=== PATIENT | female | born 1970 | race Caucasian/White ===

== ENCOUNTER 2018-04-17 21:41 | Emergency (ER) | payer OTHER, SELFPAY ==
[2018-04-17 21:49] VITALS: BP 138/81; PULSE 75; RESP 15; TEMP 36.4; O2SAT 100
[2018-04-17] MEDS: TET,DIPH,PERTUSS(ACELL),VAC/PF 0.5 ML SYRINGE IM (22:13)
--- NOTE | 2018-04-17 22:13 | ED.EYEPROB ---
HPI - Eye Problem General Chief complaint: Eye Problems Stated complaint: STATES EXPLODING EYEBALL Time Seen by Provider: 04/17/18 22:03 Source: patient and family Mode of arrival: ambulatory Limitations: no limitations History of Present Illness HPI Narrative: This is a 48-year-old lady who states she was out in her yd gathering sticks when 1 went underneath the edge of her glasses had into her left eye. Patient states that it felt like it sort of went in on the edge of the inner eye and sort of around the eye. She states that she had pain but it seemed to improve. She had kind of forgot about it or was not having any major issues when she went to rub a stye that is chronically been on the left upper eyelid and she felt a gush of fluid Um and then her sclera became very swollen and she had swelling of the upper and lower lids. She states that it has been red and irritated. She states she is legally blind, she typically has great difficulty seeing without her glasses. She has a slight decrease on the left side today but states she can still see on that side. She does have irritation with movement of the eye. She denies any other trauma or injuries. She states that the swelling and other changes did happened immediately after the injury a couple hours later she was getting ready for bed and rubbing the area of stye. Patient states that her tetanus is about 5 years old. She sees an budget record clerk with [facility]. Dr. milligan. She has an appointment on Sunday with them. She has not had any prior eye surgeries. She did have an orbital fracture in January on that side. Related Data Home Medications Medication Instructions Recorded Confirmed MULTIVITAMIN (Multiple Vitamins 1 tab PO QDAY #0 01/11/11 Daily) VITAMIN D (Vitamin D3) 1,000 unit PO QDAY #0 09/14/11 Previous Rx's Medication Instructions Recorded topiramate [Topamax] 50 mg PO BID #60 tab 04/21/16 phentermine 15 mg PO SEE INSTRUCTIONS #63 cap 05/29/16 silver sulfadiazine [Silvadene] 1 matteo TOPICAL BID #60 gm 06/06/16 fluoxetine 40 mg PO QDAY #30 cap 11/13/16 Allergies Allergy/AdvReac Type Severity Reaction Status Date / Time octinoxate [OCTINOXATE] Allergy Unknown rash Verified 04/17/18 21:49 oxybenzone [OXYBENZONE] Allergy Unknown rash Verified 04/17/18 21:49 prednisone [PREDNISONE] AdvReac Severe psychosis Verified 04/17/18 21:49 RABBITS Allergy Mild ITCHY, Uncoded 09/19/17 11:46 NASAL RHINITIS TANUMU OIL Allergy Mild RASH Uncoded 09/19/17 11:46 Ethylhexyl P-Methoxycinnamate Allergy Unknown rash Uncoded 09/19/17 11:46 GENERIC: Tape, - Tape, Allergy Unknown REDNESS/CANDIDA Uncoded 09/19/17 11:46 Adhesive H Octyl Methoxycinnamate Allergy Unknown rash Uncoded 09/19/17 11:46 Review of Systems Review of Systems All systems reviewed & are unremarkable except as noted in HPI and below Eyes Reports system reviewed and no additional complaints, except as docu, Reports blurry vision, Reports change in vision, Denies diplopia, Reports eye discharge (Watery got-after rubbing I), Reports dry eyes, Reports irritation, Denies loss of peripheral vision, Denies loss of vision, Reports eye pain, Reports requires corrective lenses (Wearing glasses today, does sometimes wear contact), Denies photophobia and Reports other (Swelling, trauma to the eye) ENT Ears, Nose, Mouth, and Throat: Reports as per HPI Integumentary/Breasts Denies new lesions Neurologic Denies loss of vision PFSH Medical History Wears glasses (Acute) Social History Smoking Status: Never smoker Exam Initial Vital Signs Initial Vital Signs: Vital Signs Temperature 97.6 F 04/17/18 21:49 Pulse Rate 75 04/17/18 21:49 Respiratory Rate 15 04/17/18 21:49 Blood Pressure 138/81 04/17/18 21:49 Pulse Oximetry 100 04/17/18 21:49 GEN: well nourished, well appearing female, alert and oriented x 3, patient appears to be in mild distress. HEENT: Atraumatic, pupils are equal round reactive to light, extraocular movements are intact, no ptosis or protrusion noted, nares are clear, TMs are clear with no fluid, there is no conjunctival pallor. Throat is clear without any exudates, erythema, tonsillar enlargement or uvular deviation Visual acuity: See chart IOP: Left 19 mm Hg General: no globe trauma Eyelids: normal inspection on right, on the left patient has swelling of the upper and particularly lower eyelid, no erythema noted eyelids everted for exam on left, no foreign body noted.. Conjunctiva/Sclera: normal inspection on the right, on the left patient has scleral edema and injection, patient appears almost to have a pull in the sclera but I am not able to appreciate an actual puncture this is at about the 5 o'clock position. I do not notice any other punctures or clear injuries to the eye itself. T Corneas: normal inspection, examined with fluroscein on left no sign of abrasion over the cornea itself, there is some pooling around the edge but I suspect this is secondary to all the scleral edema. EOM: intact, no palsy/entrapment Pupils: PERRL, normal accomadation, pupil normal Anterior Chambers: normal inspection, no hypema Posterior: normal fundoscopic on right HEART: Regular rate and rhythm without murmur, clicks, rubs. No carotid bruits, pulses are equal in upper and lower extremities LUNGS:Lungs clear to auscultation, no wheezes, rales, crackles, chest moves symmetrically ABD:bowel sounds normal, soft, non-tender, no guarding, rebound, rigidity, no masses noted, no hepatosplenomegaly :No CVA tenderness, [male/female exam] MSCL: Non-tender, no muscle atrophy, muscles strength 5/5 upper and lower extremities, full range of motion, normal gait NEURO:CN 2-12 intact, sensation normal, reflexes 2/4 upper and lower extremities. finger nose finger test normal, heel orourke test normal, romberg normal Course Orders Ordered: Discontinued Medications Diphtheria/Tetanus/Acell Pertussis (Adacel) 0.5 ml IM .ONCE ONE Stop: 04/17/18 22:12 Last Admin: 04/17/18 22:13 Dose: 0.5 ml Ofloxacin (Ocuflox) 1 bottle MISC SEEINSTR ONE Stop: 04/17/18 23:13 Last Admin: 04/17/18 23:16 Dose: 1 bottle Proparacaine HCl (Parcaine 0.5% Ophth Eleanor) 1 drops EYE-LEFT NOW ONE Stop: 11/07/18 23:13 Last Admin: 04/17/18 23:15 Dose: 1 bottle Vital Signs - 8 hr 04/17/18 21:49 04/17/18 23:30 Temperature 97.6 F Pulse Rate 75 76 Respiratory Rate 15 18 Blood Pressure 138/81 132/79 Pulse Oximetry 100 98 MDM - Eye Problem MDM Narrative Medical decision making narrative: Patient evaluated and discussed concerns for abrasions but also potential for globe injury, patient has some changes to sclera at the 5 o'clock position that are concerning for possible rupture although no actual laceration or puncture is appreciated, there is no waterfall signs with fluoroscein, patient wishes to return home at this time as her father has to work in the morning. Discussed at minimum we should discuss with optho, she prefers to leave AMA but optho called back prior to patient leaving and she was willing to wait until after discussion. Discussed findings with Dr. Tom from [facility]. Concern for possible injury to globe but I am not able to actually see any, discussed visual acuity, pressure, exam findings and patient description. He would like patient to be seen first thing in the morning, we can start antibiotic eye gtt's tonight. He is okay with Ofloxacin. Patient is aware of ongoing concern and need for recheck this morning, continuing to protect eye. We also discussed if she had any changes to the eye, iris shape or new concerns to contact EMS on the [place]. Not to wait until morning. Patient and family have transport on/off the [place] with there own personal plane. Discharge Plan Departure Patient Disposition: Home Clinical Impression: Abrasion of sclera of left eye, Injury of globe of left eye Discharge Date/Time: 04/17/18 23:32 Interventions: ED Discharge Assessment Last Done: 04/17/18 23:30 Activity Restrictions/Additional Instructions: I spoke with the on-call budget record clerk for [employer]. Call 1st thing in the morning they would like to evaluate your eye 1st thing tomorrow. You may begin antibiotic eye drops, use 1-2 drops in the affected eye on the left 4 times daily. Return to the emergency department for worsening vision changes, worsening swelling, a difficulty with movement of the eye, increasing pain, any other concerns symptoms. You are welcome to return to the ER for re-evaluation at any time. Prescriptions: No Action MULTIVITAMIN (Multiple Vitamins Daily) 1 tab PO QDAY Qty: 0 RF: 0 VITAMIN D (Vitamin D3) 1,000 unit PO QDAY Qty: 0 RF: 0 topiramate [Topamax] 50 MG tablet 50 mg PO BID Qty: 60 RF: 2 phentermine 15 MG capsule 15 mg PO SEE INSTRUCTIONS Qty: 63 RF: 0 silver sulfadiazine [Silvadene] 1 % cream 1 matteo Topical BID Qty: 60 RF: 1 fluoxetine 40 MG capsule 40 mg PO QDAY Qty: 30 RF: 0 Referrals: Baudilio Woods MD [Primary Care Provider] -
[2018-04-17] MEDS: PROPARACAINE 0.5% OPHTH SOL 1 DROPS EYE-LEFT (23:15)
[2018-04-17] MEDS: OFLOXACIN 0.3% OPHTH PREPACK 1 BOTTLE MISC (23:16)
--- NOTE | 2018-04-17 23:20 | PC.NURSE ---
Softn eye pad taped to left eye per verbal order.
[2018-04-17 23:30] VITALS: BP 132/79; PULSE 76; RESP 18; O2SAT 98
== END 2018-04-17 23:32 | disposition home or self-care (01) ==
PROVIDERS: Emergency Provider Emergency Medicine; PCP Family Medicine
DX: S05.8X2A Other injuries of left eye and orbit, initial encounter (principal); S05.92XA Unspecified injury of left eye and orbit, initial encounter; W26.8XXA Contact with other sharp object(s), not elsewhere classified, initial encounter
CPT/HCPCS: 90471; 99282; 99283; 90715

== ENCOUNTER → 2018-08-23 14:04 | Outpatient (CLI) | payer OTHER, SELFPAY ==
--- NOTE | 2018-08-23 | DI.MG.S_ITS ---
BILATERAL DIGITAL SCREENING MAMMOGRAM 3D/2D WITH CAD: 08/23/2018 CLINICAL: Routine screening. Comparison is made to exams dated: 09/28/2015 mammogram, 09/14/2014 mammogram, and 09/02/2013 mammogram - [facility]. There are scattered fibroglandular elements in both breasts. Current study was also evaluated with a Computer Aided Detection (CAD) system. No significant masses, calcifications, or other findings are seen in either breast. There has been no significant interval change. IMPRESSION: NEGATIVE There is no mammographic evidence of malignancy. A 1 year screening mammogram is recommended. This exam was interpreted at Station ID: [id number]. NOTE: For mammograms, a report in lay terms will be sent to the patient. Approximately 15% of breast malignancies will not be visualized mammographically. In the management of a palpable breast mass, a negative mammogram must not discourage biopsy of a clinically suspicious lesion. Electronically Signed By: Gisella gao/joycelyn:08/23/2018 16:28:49 letter sent: Normal Exam ACR BI-RADS Category 1: Negative 3341F
== END ==
PROVIDERS: PCP Family Medicine; Visit Provider Family Medicine
DX: Z12.31 Encounter for screening mammogram for malignant neoplasm of breast (principal)
CPT/HCPCS: 77063; 77067

== ENCOUNTER → 2020-07-14 11:15 | Outpatient (CLI) | payer OTHER, SELFPAY ==
--- NOTE | 2020-07-14 | DI.MG.S_ITS ---
BILATERAL DIGITAL SCREENING MAMMOGRAM 3D/2D WITH CAD: 07/14/2020 CLINICAL: Routine screening. Comparison is made to exams dated: 08/23/2018 mammogram, 09/28/2015 mammogram, and 09/14/2014 mammogram - [facility]. There are scattered fibroglandular elements in both breasts. Current study was also evaluated with a Computer Aided Detection (CAD) system. No significant masses, calcifications, or other findings are seen in either breast. There has been no significant interval change. IMPRESSION: NEGATIVE There is no mammographic evidence of malignancy. A 1 year screening mammogram is recommended. This exam was interpreted at Station ID: [id number]. NOTE: For mammograms, a report in lay terms will be sent to the patient. Approximately 15% of breast malignancies will not be visualized mammographically. In the management of a palpable breast mass, a negative mammogram must not discourage biopsy of a clinically suspicious lesion. Electronically Signed By: Leo sesay/joycelyn:07/14/2020 12:17:52 letter sent: Normal Exam ACR BI-RADS Category 1: Negative [id number]
== END ==
PROVIDERS: PCP Family Medicine; Referring Provider Nurse Practitioner Family; Visit Provider Nurse Practitioner Family
DX: Z12.31 Encounter for screening mammogram for malignant neoplasm of breast (principal)
CPT/HCPCS: 77063; 77067